=== PATIENT | male | born 1960 | race African-American/Black ===

== ENCOUNTER 2024-10-02 08:55 | Emergency (ER) | payer BC, SELFPAY ==
[2024-10-02] VITALS (8 sets, daily range): BP systolic 110–159; BP diastolic 80–99; PULSE 78–87; RESP 16–22; TEMP 36.4; O2SAT 97–98
--- NOTE | ~2024-10-02 | CT_ITS ---
EXAMINATION: CT brain wo con DATE: 10/02/2024 09:15 INDICATION: Stroke. TECHNIQUE: Computed tomography (CT) of the head was performed without intravenous contrast. The mA wa s adjusted according to patient size. Iterative reconstruction technique was employed. The dose-lengt h product was 681.00 mGy-cm. COMPARISON: None FINDINGS: There are scattered areas of low attenuation in the cerebral white matter, which is within normal limits for the patient's age. There is no intracranial hemorrhage, acute infarction, or abnorm al intracranial mass lesion. The ventricles are normal in size. There is mild mucosal thickening in t he paranasal sinuses. The orbits are normal. The mastoid air cells are normal. IMPRESSION: 1. Normal aging brain. Reviewed, dictated and finalized at location A. MOTIVE PRODUCT ENGINEER IMPRESSION: 1. Normal aging brain.
--- NOTE | ~2024-10-02 | CT_ITS ---
EXAMINATION: CTA brain carotid DATE: 10/02/2024 09:23 INDICATION: Stroke. TECHNIQUE: Computed tomographic angiography (CTA) of the head was performed with 100 mL Omnipaque-350 intravenous contrast. CTA of the neck was performed with intravenous contrast. Automated exposure co ntrol and iterative reconstruction technique were employed. The dose-length product was 1180.64 mGy-c m. Maximum intensity projection and volume rendered 3D-reconstructions were created by the technologi st on a separate workstation. COMPARISON: Head CT 10/02/2024 FINDINGS: HEAD CTA: There are scattered areas of low attenuation in the cerebral white matter, which is within normal limits for the patient's age. There is no intracranial hemorrhage, acute infarction, or abnorm al intracranial mass lesion. The ventricles are normal in size. The orbits are normal. There is mild mucosal thickening in the paranasal sinuses. The mastoid air cells are normal. Right vertebral artery is dominant. There is no significant stenosis of basilar artery or the posterior cerebral arteries. The posterior communicating arteries are normal. There is no significant stenosis of the intracranial internal carotid arteries or anterior or middle cerebral arteries. Anterior communicating artery is normal. There is no aneurysm. NECK CTA: There are no pathologically enlarged lymph nodes. There is no significant stenosis of the v ertebral arteries. There is plaque in the proximal internal carotid arteries. There is 0% stenosis of the proximal right internal carotid artery relative to normal distal artery lumen diameter (NASCET c riteria). There is 0% stenosis of the proximal left internal carotid artery relative to normal distal artery lumen diameter. There is mild cervical spondylosis. IMPRESSION: 1. Normal aging brain. 2. No aneurysm or significant intracranial arterial stenosis. 3. 0% stenosis of the proximal internal carotid arteries relative to normal distal artery lumen diame ters (NASCET criteria). Reviewed, dictated and finalized at location A. E LAMINATOR OPERATOR IMPRESSION: 1. Normal aging brain. 2. No aneurysm or significant intracranial arterial stenosis. 3. 0% stenosis of the proximal internal carotid arteries relative to normal dis abiodun artery lumen diameters (NASCET criteria).
--- NOTE | ~2024-10-02 | XR_ITS ---
Portable chest x-ray Comparison: 08/30/2022 Clinical History: Stroke symptoms Findings: Lungs are clear, without focal consolidation or pleural effusion. Cardiomediastinal silho uette is stable. Bones and soft tissues are unremarkable. Impression: Clear lungs. Reviewed, dictated and finalized at [facility]. TICKET CLERK Impression: Clear lungs.
--- NOTE | 2024-10-02 08:57 | ECG_ITS ---
Test Date: 2024-10-02 09:33:37 Measurements Intervals [place] Rate: 76 P: 36 TN: 170 QRS: -11 QRSD: 94 T: -2 QT: 351 QTc: 397 Interpretive Statements SINUS RHYTHM BORDERLINE R WAVE PROGRESSION, ANTERIOR LEADS ST-T WAVE ABNORMALITY IN INFERIOR LEADS- CONSIDER ISCHEMIA ABNORMAL ECG No previous ECG available for comparison Electronically Signed On 10-02-2024 11:04:17 CUSTOMER ACCOUNT TECHNICIAN by Yovany Barteltt D.O.
[2024-10-02 09:04] LABS: Glucose Point of Care 332 mg/dl (65-105)
--- NOTE | 2024-10-02 09:13 | ED_ITS ---
HPI - Neuro Symptoms/Deficit General Chief Complaint: Neuro Symptoms/Deficit <Kelsey Frank APRN - Last Filed: 10/02/24 09:18> Stated Complaint: R sided facial droop <Kelsey Frank APRN - Last Filed: 10/02/24 09:18> Time Seen by Provider: 10/02/24 09:10 <Kelsey Frank APRN - Last Filed: 10/02/24 09:18> Focused HPI: Pt is a 64-year-old male who presents to the ER with R sided weakness. He reports he went to bed around 2200 last night and woke up this morning with symptoms including a R sided facial droop, R-sided upper extremity and R lower extremity weakness. Pt reports he has never had a stroke before, but has a history of high blood pressure and diabetes. He reports he understands what others are saying to him, but is having trouble getting his words back out. Pt denies any chest pain, recent fevers, neck stiffness, or recent falls. GENERAL: Well-appearing, well-nourished, and in no acute distress. HEAD: Normocephalic, atraumatic. CHEST: Clear to auscultation. ?No respiratory distress. HEART: Regular rate and rhythm.? NEURO: ?Alert and oriented x3. 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 Patient screened in triage and initial orders placed.? ?Additional care and disposition to be based upon?diagnostic testing and treatment. <Kelsey Frank APRN - Last Filed: 10/02/24 09:18> History of Present Illness HPI Narrative: patient is a 64-year-old gentleman presents emergency department with chief complaint of right-sided weakness. The patient states that he woke up at 6:30 a.m. in the morning and at 7:00 a.m. when he went to the bathroom he developed symptoms. <Portillo Mccarthy MD - Last Filed: 10/02/24 10:59> Review of Systems 2 Review of Systems: A 10 system review of systems was completed on the patient and is negative except for what is stated in the HPI. Nursing and ancillary documentation was reviewed. <Portillo Mccarthy MD - Last Filed: 10/02/24 10:59> PMFSH Comments history of hypertension and diabetes <Portillo Mccarthy MD - Last Filed: 10/02/24 10:59> Exam 2 Narrative: GENERAL: Well-appearing, well-nourished, and in no acute distress. HEAD: Normocephalic, atraumatic. EYES: PERRLA and EOMI. ENT: Nares clear, no rhinorrhea or epistaxis. Mucous membranes moist. NECK: Supple. CHEST: Clear to auscultation. No respiratory distress. HEART: Regular rate and rhythm. No murmur heard. Normal peripheral pulses. ABDOMEN: Soft, nontender, nondistended, normal active bowel sounds. EXTREMITIES: Normal range of motion. No edema. SKIN: Warm, dry, no rash. NEURO: right-sided facial droop, slurred speech, right-sided drift and right upper extremity and right lower extremity ataxia present extremities NIH 6 Alert and oriented x3. PSYCH: Normal mood and affect. <Portillo Mccarthy MD - Last Filed: 10/02/24 10:59> Course Vital Signs Vital signs: Vital Signs Temperature 36.4 C 10/02/24 08:58 Pulse Rate 81 10/02/24 08:58 Respiratory Rate 16 10/02/24 08:58 Blood Pressure 140/89 10/02/24 08:58 Pulse Oximetry 97 10/02/24 08:58 Oxygen Delivery Room Air 10/02/24 08:58 Temperature 36.4 C 10/02/24 08:58 Pulse Rate 81 10/02/24 10:00 Respiratory Rate 16 10/02/24 10:00 Blood Pressure 159/86 H 10/02/24 10:00 Pulse Oximetry 97 10/02/24 10:00 Oxygen Delivery Room Air 10/02/24 08:58 <Kelsey Frank APRN - Last Filed: 10/02/24 09:18> Vital Signs Temperature 36.4 C 10/02/24 08:58 Pulse Rate 81 10/02/24 08:58 Respiratory Rate 16 10/02/24 08:58 Blood Pressure 140/89 10/02/24 08:58 Pulse Oximetry 97 10/02/24 08:58 Oxygen Delivery Room Air 10/02/24 08:58 Temperature 36.4 C 10/02/24 08:58 Pulse Rate 81 10/02/24 10:00 Respiratory Rate 16 10/02/24 10:00 Blood Pressure 159/86 H 10/02/24 10:00 Pulse Oximetry 97 10/02/24 10:00 Oxygen Delivery Room Air 10/02/24 08:58 <Portillo Mccarthy MD - Last Filed: 10/02/24 10:59> MDM - Neuro Symptoms/Deficit MDM Narrative Medical decision making narrative: differential diagnosis includes acute stroke, CT head and CT angiography head and neck showed no acute abnormality. Laboratory studies were obtained on the patient which showed a blood sugar of 332 CBC was within normal limits initially the patient had a question as to last known well and multiple repeated questioning of the patient patient has both confirmed with me and also the nurse that his last known well was right at 7:00 a.m. the patient reports that he woke up at 6:30 a.m. had no symptoms at the time of waking up in occurred after he went to the bathroom <Portillo Mccarthy MD - Last Filed: 10/02/24 10:59> Lab Data Result diagrams: 10/02/24 09:07 10/02/24 09:07 <Kelsey Frank APRN - Last Filed: 10/02/24 09:18> Labs: Lab Results 10/02/24 10/02/24 Range/Units 09:01 09:07 WBC 6.5 (4.5-10.0) K/mm3 RBC 5.95 (4.6-6.20) M/mm3 Hgb 16.1 (14.0-18.0) g/dL Hct 47.4 (42.0-52.0) % MCV 79.7 L (80-100) fl MCH 27.1 (26-34) pg MCHC 34.0 (32-36) g/dl RDW 13.3 (11.5-14.5) % Plt Count 251 (150-375) k/mm3 MPV 10.4 (7.4-10.4) fl Immature Gran % (Auto) 0.5 (0-0.5) % Neut % (Auto) 67.9 (45.5-73.1) % Lymph % (Auto) 19.4 (18.3-44.2) % Barren % (Auto) 9.4 H (2.6-8.5) % Eos % (Auto) 2.0 (0-4.4) % Baso % (Auto) 0.8 (0.2-1.2) % Lymph # (Auto) 1.26 (0.9-3.2) K/mm3 Barren # (Auto) 0.6 (0.1-0.6) K/mm3 Eos # (Auto) 0.1 (0-0.3) K/mm3 Baso # (Auto) 0.1 (0.0-0.1) K/mm3 Abs Immat Gran (auto) 0.03 (0.00-0.031) K/mm3 Absolute Neuts (auto) 4.4 (1.3-6.7) K/mm3 Absolute Nucleated RBC 0.000 (0.0-0.012) K/mm3 Nucleated RBC % 0.0 (0.0-0.2) % PT 12.9 (11.1-14.7) Seconds INR 0.9 APTT 23.4 (22.3-36.8) Seconds Sodium 136 L (137-145) mmol/L Potassium 4.1 (3.4-5.0) mmol/L Chloride 98 (98-107) mmol/L Carbon Dioxide 24 (22-30) mmol/L Anion Gap 14 H (4-12) mmol/L BUN 23 H (9-20) mg/dL Creatinine 1.02 (0.7-1.3) mg/dL Estim Creat Clear Calc 76 ml/min Estimated GFR > 60 (59 - ) Glucose 301 H (65-110) mg/dL POC Capillary Glucose 332 H (65-105) mg/dl Calcium 9.5 (8.4-10.2) mg/dL Total Bilirubin 1.1 (0.2-1.3) mg/dL AST 27 (17-59) U/L ALT 27 (6-50) U/L Alkaline Phosphatase 74 (38-126) U/L Troponin I < 0.012 (0.000-0.034) ng/mL Total Protein 7.0 (6.3-8.2) g/dL Albumin 4.3 (3.5-5.1) g/dL <Kelsey Frank, MANAGER MOTOR - Last Filed: 10/02/24 09:18> Lab Results 10/02/24 10/02/24 Range/Units 09:01 09:07 WBC 6.5 (4.5-10.0) K/mm3 RBC 5.95 (4.6-6.20) M/mm3 Hgb 16.1 (14.0-18.0) g/dL Hct 47.4 (42.0-52.0) % MCV 79.7 L (80-100) fl MCH 27.1 (26-34) pg MCHC 34.0 (32-36) g/dl RDW 13.3 (11.5-14.5) % Plt Count 251 (150-375) k/mm3 MPV 10.4 (7.4-10.4) fl Immature Gran % (Auto) 0.5 (0-0.5) % Neut % (Auto) 67.9 (45.5-73.1) % Lymph % (Auto) 19.4 (18.3-44.2) % Barren % (Auto) 9.4 H (2.6-8.5) % Eos % (Auto) 2.0 (0-4.4) % Baso % (Auto) 0.8 (0.2-1.2) % Lymph # (Auto) 1.26 (0.9-3.2) K/mm3 Barren # (Auto) 0.6 (0.1-0.6) K/mm3 Eos # (Auto) 0.1 (0-0.3) K/mm3 Baso # (Auto) 0.1 (0.0-0.1) K/mm3 Abs Immat Gran (auto) 0.03 (0.00-0.031) K/mm3 Absolute Neuts (auto) 4.4 (1.3-6.7) K/mm3 Absolute Nucleated RBC 0.000 (0.0-0.012) K/mm3 Nucleated RBC % 0.0 (0.0-0.2) % PT 12.9 (11.1-14.7) Seconds INR 0.9 APTT 23.4 (22.3-36.8) Seconds Sodium 136 L (137-145) mmol/L Potassium 4.1 (3.4-5.0) mmol/L Chloride 98 (98-107) mmol/L Carbon Dioxide 24 (22-30) mmol/L Anion Gap 14 H (4-12) mmol/L BUN 23 H (9-20) mg/dL Creatinine 1.02 (0.7-1.3) mg/dL Estim Creat Clear Calc 76 ml/min Estimated GFR > 60 (59 - ) Glucose 301 H (65-110) mg/dL POC Capillary Glucose 332 H (65-105) mg/dl Calcium 9.5 (8.4-10.2) mg/dL Total Bilirubin 1.1 (0.2-1.3) mg/dL AST 27 (17-59) U/L ALT 27 (6-50) U/L Alkaline Phosphatase 74 (38-126) U/L Troponin I < 0.012 (0.000-0.034) ng/mL Total Protein 7.0 (6.3-8.2) g/dL Albumin 4.3 (3.5-5.1) g/dL <Portillo Mccarthy MD - Last Filed: 10/02/24 10:59> Critical Care Time Critical Care Time Critical Care Time: Yes <Portillo Mccarthy MD - Last Filed: 10/02/24 10:59> Total Critical Care Time: 75 <Portillo Mccarthy MD - Last Filed: 10/02/24 10:59> Discharge Plan Discharge Clinical Impression: Cerebrovascular accident <Kelsey Frank APRN - Last Filed: 10/02/24 09:18> Patient Disposition: Acute Care Hospital <Kelsey Frank APRN - Last Filed: 10/02/24 09:18> Condition: Stable <Kelsey Frank APRN - Last Filed: 10/02/24 09:18> Patient Language: Setswana <Kelsey Frank APRN - Last Filed: 10/02/24 09:18> Follow-up/Referrals: PHYSICIAN,RECORDS MANAGEMENT COORDINATOR [Non-Staff] - <Kelsey Frank APRN - Last Filed: 10/02/24 09:18> Time of Disposition: 10:27 <Kelsey Abiodun Frakn APRN - Last Filed: 10/02/24 09:18> 10:27 <Portillo Mccarthy MD - Last Filed: 10/02/24 10:59> Quality Stroke Date of last known normal: 10/02/24 <Portillo Mccarthy MD - Last Filed: 10/02/24 10:59> Time of last known normal: 07:00 <Portillo Mccarthy MD - Last Filed: 10/02/24 10:59> Stroke Scale Stroke Scale 1: Stroke scale date:: 10/02/24 <Portillo Mccarthy MD - Last Filed: 10/02/24 10:59> Stroke scale time:: 10:25 <Portillo Mccarthy MD - Last Filed: 10/02/24 10:59> 1a Level of consciousness: alert-0 <Portillo Mccarthy MD - Last Filed: 10/02/24 10:59> 1b Level of consciousness questions: answers both correctly-0 <Portillo Mccarthy MD - Last Filed: 10/02/24 10:59> 1c Level of consciousness commands: obeys both correctly-0 <Portillo Mccarthy MD - Last Filed: 10/02/24 10:59> 2 Best gaze: normal-0 <Portillo Mccarthy MD - Last Filed: 10/02/24 10:59> 3 Visual: no visual loss-0 <Portillo Mccarthy MD - Last Filed: 10/02/24 10:59> 4 Facial palsy: partial paralysis-2 <Portillo Mccarthy MD - Last Filed: 10/02/24 10:59> 5a Motor: left arm: no drift-0 <Portillo Mccarthy MD - Last Filed: 10/02/24 10:59> 5b Motor: right arm: drift-1 <Portillo Mccarthy MD - Last Filed: 10/02/24 10:59> 6a Motor: left leg: no drift-0 <Portillo Mccarthy MD - Last Filed: 10/02/24 10:59> 6b Motor: right leg: drift-1 <Portillo Mccarthy MD - Last Filed: 10/02/24 10:59> 7 Limb ataxia: present in one limb-1 <Portillo Mccarthy MD - Last Filed: 10/02/24 10:59> 8 Sensory: normal-0 <Portillo Mccarthy MD - Last Filed: 10/02/24 10:59> 9 Best language: no aphasia-0 <Portillo Mccarthy MD - Last Filed: 10/02/24 10:59> 10 Dysarthria: slurs some words-1 <Portillo Mccarthy MD - Last Filed: 10/02/24 10:59> 11 Extinction and inattention: no abnormality-0 <Portillo Mccarthy MD - Last Filed: 10/02/24 10:59> Level:: 6 <Portillo Mccarthy MD - Last Filed: 10/02/24 10:59>
[2024-10-02 09:14] LABS: Basophils Absolute Auto 0.1 K/mm3 (0.0-0.1); Basophils Percent Auto 0.8 % (0.2-1.2); Eosinophils Absolute Auto 0.1 K/mm3 (0-0.3); Hematocrit 47.4 % (42.0-52.0); Hemoglobin 16.1 g/dL (14.0-18.0); Immature Granulocyte Absolute 0.03 K/mm3 (0.00-0.031); Immature Granulocyte Percent A 0.5 % (0-0.5); Lymphocytes Absolute Auto 1.26 K/mm3 (0.9-3.2); Lymphocytes Percent Auto 19.4 % (18.3-44.2); Mean Corpuscular Hemoglobin 27.1 pg (26-34); Mean Corpuscular Volume 79.7 fl (80-100); Mean Platelet Volume 10.4 fl (7.4-10.4); Monocytes Absolute Auto 0.6 K/mm3 (0.1-0.6); Monocytes Percent Auto 9.4 % (2.6-8.5); Neutrophils Absolute Auto 4.4 K/mm3 (1.3-6.7); Neutrophils Percent Auto 67.9 % (45.5-73.1); Platelet Count Result 251 k/mm3 (150-375); Red Blood Count 5.95 M/mm3 (4.6-6.20); Red Cell Distribution Width 13.3 % (11.5-14.5); White Blood Count 6.5 K/mm3 (4.5-10.0)
[2024-10-02 09:25] LABS: Alanine Aminotransferase 27 U/L (6-50); Albumin Level 4.3 g/dL (3.5-5.1); Alkaline Phosphatase 74 U/L (38-126); Anion Gap 14 mmol/L (4-12); Aspartate Amino Transferase 27 U/L (17-59); Bilirubin,Total 1.1 mg/dL (0.2-1.3); Blood Urea Nitrogen 23 mg/dL (9-20); Calcium 9.5 mg/dL (8.4-10.2); Carbon Dioxide 24 mmol/L (22-30); Chloride 98 mmol/L (98-107); Estimated CRCL calculation 76 ml/min; Estimated Glomerular Filt Rate > 60; Glucose 301 mg/dL (65-110); Potassium 4.1 mmol/L (3.4-5.0); Sodium 136 mmol/L (137-145)
[2024-10-02 09:30] LABS: INR 0.9; Prothrombin Time 12.9 Seconds (11.1-14.7)
[2024-10-02 09:32] LABS: Partial Thromboplastin Time 23.4 Seconds (22.3-36.8)
[2024-10-02 09:37] LABS: Troponin I < 0.012 ng/mL (0.000-0.034)
[2024-10-02] MEDS: TENECTEPLASE 50 MG/10 ML VIAL 23.8 MG IV PUSH (10:48)
[2024-10-02 11:20] LABS: Amphetamine Screen Urine Negative (Negative); Barbiturate Screen Urine Negative (Negative); Benzodiazepines Screen Urine Negative (Negative); Cannabinoid Screen Urine Negative (Negative); Cocaine Screen Urine Negative (Negative); Methadone Screen Urine Negative (Negative); Opiate Screen Urine Negative (Negative); Phencyclidine Screen Urine Negative (Negative)
--- OUTSIDE RECORDS SUMMARY | 2024-10-02 11:25 | XMS_ITS | Encounter Summary ---
Author Organization [facility] Address Formerly [facility], later [facility] [place] [address] Care Team Providers Care Cruise Coordinator Name Role Phone Ba Gustafson MD Primary Care Provider [phone] Leticia Tompkins MD Unavailable [phone] Non-Staff, Provider Primary Care Provider Vicki spann Encounter Details Date Type Department Care Team (Late st Contact Info) Description 04/12/2021 Prep for Procedure [facility] [place] [address] Everette Jaramillo, DO #3 [facility] [address] [place] [id number] Social History Tobacco Use Types Packs/Day Years Used Date Smoking Tobacco: Former Cigarettes Smokeless Tobacco: Never Alcohol Use Standard Drinks/Week Comments No 0 (1 standard drink = 0.6 oz pur e alcohol) AUDIT-C Answer Date Recorded Frequency of Alcohol Consumption Never 03/12/2019 Average Number of Drinks Not on file 019 Frequency of Binge Drinking Not on file 02/25 Sex and Gender Information Value Date Recorded Sex Assigned at Not on file Legal Sex Male 1:57 PM CDT Gender Identity Not on file Sexual Orientation Not on file Occupation Industry Job Start Date Job End Date Student Not on file Not on file Not on file documented as of this encounter Plan of Treatment Not on file documented as of this encounter Visit Diagnoses Diagnosis Screening for colon cancer- Primary Special screening for malignant neoplasms, colon documented in this encounter Additional Health Concerns Infection Onset Date Last Indicated Resolved Time COVID-19 Rule Out 03/29/2022 03/29/2022 03/30/2022 7:47 AM CDT documented as of this encounter Care Teams Cruise Coordinator Relationship Specialty Start Date End Date Ba Gustafson MD [address] [place] [id number] PCP - General FAMILY PRACTICE 03/22/18 05/16/21 Non-Staff, Provider PCP - General 05/17/21 Leticia Tompkins MD [address] [place] [id number] [place] [facility] Specialist CARDIOVASCULAR DISEASE 03/22/18 documented as of this encounter
--- OUTSIDE RECORDS SUMMARY | 2024-10-02 11:25 | XMS_ITS | Clinical Summary ---
Author Organization [facility] Address [facility] [place] [address] Care Team Providers Care Manager Quantitative Name Role Phone Leticia Tompkins MD Unavailable [phone] Non-Staff, Provider Primary Care Provider Vicki spann Allergies Active Allergy Reactions Criticality Noted Date Comments Aspirin Dizziness 04/02/2018 Latex Unknown 04/02/2018 Medications metFORMIN 1000 MG tablet Take 1,000 mg by mouth 2 (two) times daily with meals. Active hydrochlorothiaz cody 25 MG tablet Take 1 tablet (25 mg total) by mouth every morning. 30 tablet 11 03/12/2019 Active lisinopril 40 MG tablet Take 1 tablet (40 mg total) by mouth daily. 30 tablet 11 06/07/2019 Active carvedilol 12.5 MG tablet Take 1 tablet (12.5 mg total) by mouth 2 (two) times daily. 60 tablet 11 06/07/2019 Active Active Problems Problem Noted Date Diagnosed Date Type 2 diabetes mellitus wit h complication, without long-term current use of insulin ([facility]) 03/12/2019 HTN (hypertension) Immunizations Name Administration Dates Next Due PFIZER COVID-19 (ORIGINAL FO RMULATION, PURPLE CAP) mRNA, LNP-S, PF, 30 MCG/0.3 ML DOSE 04/05/2021,01/27/2021 Family History Medical History Relation Comments Diabetes Father Heart Disease Father Relation Status Comments Father Social History Tobacco Use Types Packs/Day Years [...] file Not on file Not on file Last Filed Vital Signs Vital Sign Reading Time Taken Comments Blood Pressure 176/96 05/17/2021 1:45 PM CDT Pulse 64 05/17/2021 1:50 PM CDT Temperature 37.3 ??C (99.1 ??F) 05/17/2021 1:25 PM CD T Respiratory Rate 15 05/17/2021 1:50 PM CDT Oxygen Saturation 98% 05/17/2021 1:50 PM CDT Inhaled Oxygen Concentration - - Weight 88.9 kg (196 lb) 05/17/2021 11:15 AM CDT Height 177.8 cm (5' 10 ) 05/17/2021 11:15 AM CDT Body Mass Index 28.12 05/17/2021 11:15 AM CDT Plan of Treatment Health Maintenance Due Date Last Done Comments Kidney Health Evaluation 1962 Lipid Panel 1960 Annual Physical 1965 Pneumococcal Vaccine: Pediatrics (0 to 5 Years) and At-Risk Patients (6 to 64 Years) (1 of 2 - PCV) 01/11/1968 Diabetes: Retinopathy Eye Exam 01/11/1980 Hepatitis C 01/11/1980 DTaP, Tdap and Td Vaccines ( 1 - Tdap) 1981 Zoster Vaccines (1 of 2) 01/11/2012 Hemoglobin A1C 07/07/2018 01/04/2018, 09/22/2017 COVID-19 Vaccine (3 - 2023-2 5 season) 2024 04/05/2021, 01/27/2021 Influenza Adult (#1) 2024 Colorectal Cancer Screening Colonoscopy (10 Years) 05/17/2031 05/17/2021 RSV Immunization or 60+ Years (1 - 1-dose 75+ series) 2037 Meningococcal B Vaccine Aged Out No l onger eligible based on patient's age to complete this topic Meningococcal Vaccine Aged Out No agustin sandra eligible based on patient's age to complete this topic RSV Immunizations Under 20 Months Aged Out No longer eligible b ased on patient's age to complete this topic Medical Devices Implanted Type Area Civil Technician Device Identifier Shelf Expiration Date Model / Serial / Lot Clip Resolution 2.8mm Braid Catheter Rotation Control Knob No Sheath Resolution 360 235cm 11mm Open - [id number] Implanted:Qty : 1 on 05/17/2021 by Everette Jaramillo DO at [facility] Clip Implant N/A: Abdomen CORD:USE Cord Blood Bank [id number] 03/14/2024 [id number] / / [id number] Description:Ascending colon Procedures Procedure Name Priority Date/Time Associated Diagnosis Comments HEMOGLOBIN, GLYCOSYLATED Routine 01/04/2018 from Last 3 Months or Most Recently Relevant to Health Maintenance Results * HEMOGLOBIN, GLYCOSYLATED (01/04/2018) HGB A1C 8.8 01/04/2018 us [facility] Final Result from Last 3 Months or Most Recently Relevant to Health Maintenance Insurance [facility] Care Teams Manager Quantitative Relationship Specialty Start Date End Date Non-Staff, Provider PCP - General 05/17/21 Leticia Tompkins MD [address] [place] [id number] [place] Change Management Coordinator CARDIOVASCULAR DISEASE 03/22/18
--- OUTSIDE RECORDS SUMMARY | 2024-10-02 11:25 | XMS_ITS | Referral Summary ---
Author Organization [facility] [id number] Address [address] [place] [address] Care Team Providers Care Jelly Maker Name Role Phone Kaur Earl NP Primary Care Provider [phone] Allergies Active Allergy Reactions Criticality Noted Date Comments Aspirin Dizziness Low 04/02/2018 Other reaction(s): Dizziness Latex Unknown 04/02/2018 Medications blood-glucose meter kitIndications:Type 2 diabetes mellitus without complication, without long-term current use of insulin ([facility]/HCC) (HCC) 1 each daily DX: e11.9 1 each 3 1 Active lancets misc Check sugar once daily 100 each 1 1 Active ibuprofen (ADVIL,MOTRIN) 800 mg tabletIndications:A nti-inflammatory,Pa in Take 1 tablet (800 mg total) by mouth 3 (three) times a day 90 tablet 3 Active rosuvastatin (CRESTOR) 10 mg tabletIndications:M ixed hyperlipidemia Take 1 tablet (10 mg total) by mouth daily 90 tablet 1 3 Active empagliflozin (Jardiance) 25 mg tabletIndications:H ypertension associated with diabetes (HCC) Take 1 tablet (25 mg total) by mouth daily 90 tablet 1 4 Active hydrALAZINE (APRESOLINE) 50 mg tabletIndications:h ypertension Take 1 tablet (50 mg total) by mouth 2 (two) times a day 60 tablet 1 4 Active lisinopriL (PRINIVIL,ZESTRIL) 40 mg tabletIndications:H ypertension associated with diabetes (HCC) Take 1 tablet (40 mg total) by mouth daily 90 tablet 1 4 Active metFORMIN (GLUCOPHAGE) 1,000 mg tabletIndications:H ypertension associated with diabetes (HCC) TAKE 1 TABLET(1000 MG) BY MOUTH TWICE DAILY WITH MEALS 60 tablet 4 Active carvediloL (COREG) 12.5 mg tabletIndications:H ypertension associated with diabetes (HCC) TAKE 1 TABLET(12.5 MG) BY MOUTH TWICE DAILY WITH MEALS 60 tablet 4 Active hydroCHLOROthiazide (HYDRODIURIL) 25 mg tabletIndications:H ypertension associated with diabetes (HCC) TAKE 1 TABLET(25 MG) BY MOUTH DAILY 30 tablet 4 Active Active Problems Problem Noted Date Diagnosed Date Chronic midline low back pain without sciatica 0 02/10/2023 Assessment & Plan (02/10/2023 2:11 PM CDT): This is a significant, separately identifiable problem that was evaluated and managed on the same day as the wellness exam Subacute cough 08/30/2022 Fever 08/30/2022 Erectile dysfunction 06/27/2022 BMI 27.0-27.9,adult 06/13/2022 Assessment & Plan (06/13/2022 10:29 AM CDT): Weight/BMI is in healthy range. Continue healthy lifestyle to maintain. Mixed hyperlipidemia 06/13/2022 Hypertension associated with diabetes 10/06/2020 Assessment & Plan (02/10/2023 2:11 PM CDT): This is a significant, separately identifiable problem that was evaluated and managed on the same day as the wellness exam Assessment & Plan (11/24/2020 9:34 AM CDT): Restart lisinopril daily. Advised goal 120-130/80. Assessment & Plan (10/06/2020 9:46 AM [employer]PRES[employer]ATIVE [employer]): Restart medications. Advised goal 120/80 Encounter to establish care 10/06/2020 Assessment & Plan (10/06/2020 9:46 AM SALES [employer]PRESENTATIVE [employer]ILITY [employer]): He declines vaccines at this time. Retrieve records from previous pcp. Prostate cancer screening 10/06/2020 Assessment & Plan (10/06/2020 9:45 AM SALES [employer]PRESENTATIVE [employer]ILITY [employer]): Will evaluate psa, will notify of results as available Physical exam, annual 10/06/2020 Assessment & Plan (10/06/2020 9:46 AM SALES REPRESENTATIVE [employer]ILITY [employer]): Will refer to GI for cscope Primary osteoarthritis of right knee 10/06/2020 Assessment & Plan (10/06/2020 9:45 AM SALES [employer]PRESENT[employer]IVE [employer]ILITY [employer]): Advised RICE therapy, tylenol prn Offered referral to PT and ortho - he declines at this time Type 2 diabetes mellitus wit hout complication, without long-term current use of insulin ([facility]) 03/12/2019 Overview (06/12/2023): Start Farxiga 10 mg daily as directed. Continue metformin 1000 mg twice daily. Have lab work completed prior to next visit Assessment & Plan (11/24/2020 9:34 AM CDT): Advised him to complete labs as ordered at previous visit. Advised him to schedule dilated eye exam. Advised monitoring sugar with goal 80-120 fasting. He will call office over coming week with glucose log as we may need to adjust medication. Assessment & Plan (10/06/2020 9:45 AM SALES REPRESENTATIVE [employer]ILITY [employer]): Restart medications Fasting labs entered, will notify patient of results as available Advised goal fasting sugar 80-120 Resolved Problems Problem Noted Date Diagnosed Date Resolved Date BMI 28.0-28.9,adult 11/24/2020 06/13/20 Assessment & Plan (11/24/2020 8:10 AM CDT): Weight/BMI is in healthy range. Continue healthy lifestyle to maintain. BMI 29.0-29.9,adult 10/06/2020 11/25/19 Assessment & Plan (10/06/2020 8:43 AM SALES REPRESENTATIVE [employer]ILITY [employer]): Obesity is unchanged. Discussed the patient's BMI. The BMI is above average. BMI management plan is completed. BMI Follow-up includes: nutrition counseling, exercise counseling and education provided. Immunizations Name Administration Dates Next Due Influenza, Unspecified 11/14/2023(Deferr ed: Patient Refused),08/28/2023(Deferred: Patient Refused),06/12/2023(Deferred: Patient Refused),08/29/2022(Deferred: Patient Refused),08/28/2022(Deferred: Patient Refused),06/28/2022,08/30/2021(Deferred: Patient Refused),06/05/2020(Deferred: Patient Refused) Social History Tobacco Use Types Packs/Day Years Used Date Smoking Tobacco: Never Smokeless Tobacco: Never Tobacco Cessation:Counseling Given: Not Answered Alcohol Use Standard Drinks/Week Comments Never 0 (1 standard drink = 0.6 oz pur e alcohol) AUDIT-C Answer Date Recorded Q1: How often do you have a drink containing alc ohol? Never 06/13/2022 Average Number of Drinks Not on file 022 Q3: How often do you have si x or more drinks on one occasion? Never 06/13/2022 PHQ-2 Answer Date Recorded PHQ-2 Total Score (If total score is 3 or more points, staff should administer the PHQ-9) 0 11/14/2023 Personal Safety Answer Date Recorded Getting School Help Needed Not on file 09/17 Sex and Gender Information Value Date Recorded Sex Assigned at Not on file Legal Sex Male 12:16 PM [employer] Gender Identity Not on file Sexual Orientation Not on file Last Filed Vital Signs Vital Sign Reading Time Taken Comments Blood Pressure 162/98 06/12/2023 9:50 AM CDT Pulse 82 11/14/2023 2:36 PM CDT Temperature 37.1 ??C (98.7 ??F) 06/12/2023 9:50 AM CD T Respiratory Rate 16 06/27/2022 10:44 AM CDT Oxygen Saturation 96% 11/14/2023 2:36 PM CDT Inhaled Oxygen Concentration - - Weight 88.5 kg (195 lb) 11/14/2023 2:36 PM CDT Height 177.8 cm (5' 10 ) 11/14/2023 2:36 PM CDT Body Mass Index 27.98 11/14/2023 2:36 PM CDT Plan of Treatment Not on file Procedures Procedure Name Priority Date/Time Associated Diagnosis Comments POCT HEMOGLOBIN A1C Routine 11/14/2023 2 :58 PM CDT Hypertension associated with diabetes (HCC) COMPREHENSIVE METABOLIC PANEL Routine 02/24/2023 1:50 PM CDT Essential hypertension LIPID PANEL Routine 02/24/2023 1:50 PM CDT Mixed hyperlipidemia HEPATITIS C ANTIBODY Routine 06/14/2022 9:42 AM CDT Encounter for hepatitis C screening test for low risk patient ALBUMIN CREATININE RATIO, URINE Routine 06/14/2022 9:42 AM CDT Type 2 diabetes mellitus without complication, without long-term current use of insulin (CMS/HCC) (HCC) PSA SCREEN Routine 06/14/2022 9:42 AM CDT Screening for prostate cancer DIABETIC FOOT EXAM Routine 06/13/2022 10 :38 AM CDT HM COLONOSCOPY Routine 05/17/2021 from Last 3 Months or Most Recently Relevant to Health Maintenance Results * (ABNORMAL) POCT hemoglobin A1c (11/14/2023 2:58 PM CDT) Hemoglobin A1C, POC 9.3 % BLD 11/14/2023 2:58 PM CDT Kaur Earl NP POINT OF CARE TEST ORDERABLES Final Result * (ABNORMAL) Lipid panel (02/24/2023 1:50 PM CDT) Cholesterol 246(H) <200 mg/dL [facility] HDL 50 > OR = 40 mg/dL [facility] Triglycerides 104 <150 mg/dL [facility] LDL 173(H) mg/dL (calc) [facility] Comment: Reference range: <100 Desirable range <100 mg/dL for primary prevention; ?? <70 mg/dL for patients with CHD or diabetic patients with > or = 2 CHD risk factors. LDL-C is now calculated using the Eliza calculation, which is a validated novel method providing better accuracy than the Friedewald equation in the estimation of LDL-C. Stevie SS et al. ISAIAH. 2013;310(19): 2442-9064 (http://education.Luxoft/faq/DHZ334) Chol/HDL ratio 4.9 <5.0 (calc) [facility] Non-HDL, (LDL+VLDL) 196(H) <130 mg/dL (calc) [facility] Comment: For patients with diabetes plus 1 major ASCVD risk factor, treating to a non-HDL-C goal of <100 mg/dL (LDL-C of <70 mg/dL) is considered a therapeutic option. Blood 02/24/2023 1:50 PM CDT 02/24/2023 1:51 PM CDT Narrative [facility] - 02/25/2023 1:23 AM CDT FASTING:NO FASTING: NO Kaur Earl LANDCARE OFFICER LAB BLOOD ORDERABLES Final Re sult [facility] [id number] [place] [address] * (ABNORMAL) Comprehensive metabolic panel (02/24/2023 1:50 PM CDT) Pathologist [facility] Glucose 173(H) 65 - 139 mg/dL [facility] Comment: ? Non-fasting reference interval BUN 18 7 - 25 mg/dL [facility] Creatinine 1.17 0.70 - 1.35 mg/dL [facility] eGFR 71 > OR = 60 mL/min/1. 73m2 [facility] Comment: The eGFR is based on the CKD-EPI 2020 equation. To calculate the new eGFR from a previous Creatinine or Cystatin C result, go to https://www.kidney.org/professionals/ kdoqi/gfr%5Fcalculator BUN/creat ratio NOT APPLICABLE 6 - 22 (calc) [facility] Sodium 138 135 - 146 mmol/L [facility] Potassium, pl 4.3 3.5 - 5.3 mmol/L [facility] Chloride 101 98 - 110 mmol/L [facility] CO2 32 20 - 32 mmol/L [facility] Calcium 10.1 8.6 - 10.3 mg/dL [facility] Protein, sr 7.4 6.1 - 8.1 g/dL [facility] Albumin 4.6 3.6 - 5.1 g/dL [facility] GLOBULIN 2.8 1.9 - 3.7 g/dL (calc) [facility] Alb/glob ratio 1.6 1.0 - 2.5 (calc) [facility] Bilirubin, total 1.2 0.2 - 1.2 mg/dL [facility] Alk phos 65 35 - 144 U/L [facility] AST 21 10 - 35 U/L [facility] ALT (SGPT) 17 9 - 46 U/L [facility] Blood 02/24/2023 1:50 PM CDT 02/24/2023 1:51 PM CDT Narrative [facility] - 02/25/2023 1:23 AM CDT FASTING:NO FASTING: NO Kaur Earl LANDCARE OFFICER LAB BLOOD ORDERABLES Final Re sult [facility] [address] [place] [address] * PSA screen (06/14/2022 9:42 AM CDT) PSA 1.11 < OR = 4.00 ng/mL [facility] Comment: The total PSA value from this assay system is standardized against the WHO standard. The test result will be approximately 20% lower when compared to the equimolar-standardized total PSA (Meghan Teresa). Comparison of serial PSA results should be interpreted with this fact in mind. This test was performed using the Siemens chemiluminescent method. Values obtained from different assay methods cannot be used interchangeably. PSA levels, regardless of value, should not be interpreted as absolute evidence of the presence or absence of disease. Blood 06/14/2022 9:42 AM CDT 06/14/2022 9:44 AM CDT Kaur Earl LANDCARE OFFICER LAB BLOOD ORDERABLES Final Re sult Performing Organization Address [facility] de Phone Number [facility] [address] [place] [address] * Hepatitis C antibody (06/14/2022 9:42 AM CDT) Hep C Ab NON-REACTI VE NON-REACT DORCAS [facility] SIGNAL TO CUT-OFF 0.02 <1.00 [facility] Comment: HCV antibody was non-reactive. There is no laboratory evidence of HCV infection. In most cases, no further action is required. However, if recent HCV exposure is suspected, a test for HCV RNA (test code 16076) is suggested. For additional information please refer to http://education.Axigen Messaging/faq/EJB01o6 (This link is being provided for informational/ educational purposes only.) Blood 06/14/2022 9:42 AM CDT 06/14/2022 9:44 AM CDT Kaur Earl LANDCARE OFFICER LAB MICROBIOLOGY - GENERAL OR DERABLES Final Result Performing Organization Address [facility] de Phone Number [facility] [address] [place] [address] * Albumin Creatinine Ratio, Urine (06/14/2022 9:42 AM CDT) Creatinine, ur 178 20 - 320 mg/dL [facility] Microalbumin, ur 1.1 See Note: mg/dL [facility] Comment: Reference Range: Reference Range Not established Microalbumin/creat ratio 6 <30 mcg/mg creat [facility] Comment: The ADA defines abnormalities in albumin excretion as follows: Albuminuria Category ?Result (mcg/mg creatinine) Normal to Mildly increased ?? <30 Moderately increased ? 30-299 Severely increased ? > OR = 300 The ADA recommends that at least two of three specimens collected within a 3-6 month period be abnormal before considering a patient to be within a diagnostic category. Urine 06/14/2022 9:42 AM CDT 06/14/2022 9:44 AM CDT Kaur Earl LANDCARE OFFICER LAB URINE ORDERABLES Final Re sult [facility] [address] [place] [address] * Diabetic Foot Exam (06/13/2022 10:38 AM CDT) Historical Provider HEALTH MAINTENANCE Final Result * (ABNORMAL) COLONOSCOPY (05/17/2021) Historical Provider HEALTH MAINTENANCE Edited Result - Final from Last 3 Months or Most Recently Relevant to Health Maintenance Insurance codebender OOS codebender OOS Care Teams Jelly Maker Relationship Specialty Start Date End Date Kaur Earl NP PCP - General Internal Medicine 06/13/22
--- OUTSIDE RECORDS SUMMARY | 2024-10-02 11:25 | XMS_ITS | Clinical Summary ---
Author Organization [facility] [address] Address [address] [place] [address] Care Team Providers Care Solar Electric/Photovoltaic Installer Name Role Phone Kaur Earl NP Primary Care Provider [phone] Allergies Active Allergy Reactions Criticality Noted Date Comments Aspirin Dizziness Low 04/02/2018 Other reaction(s): Dizziness Latex Unknown 04/02/2018 Medications blood-glucose meter kitIndications:Type 2 diabetes mellitus without complication, without long-term current use of insulin ([facility]/HCC) (HCC) 1 each daily DX: e11.9 [...] 120-130/80. Assessment & Plan (10/06/2020 9:46 AM CERTIFICATION ENGINEER): Restart medications. Advised goal 120/80 Encounter to establish care 10/06/2020 Assessment & Plan (10/06/2020 9:46 AM CERTIFICATION ENGINEER): He declines vaccines at this time. Retrieve records from previous pcp. Prostate cancer screening 10/06/2020 Assessment & Plan (10/06/2020 9:45 AM CERTIFICATION ENGINEER): Will evaluate psa, will notify of results as available Physical exam, annual 10/06/2020 Assessment & Plan (10/06/2020 9:46 AM CERTIFICATION ENGINEER): Will refer to GI for cscope Primary osteoarthritis of right knee 10/06/2020 Assessment & Plan (10/06/2020 9:45 AM CERTIFICATION ENGINEER): Advised RICE therapy, tylenol prn Offered referral to PT and ortho - he declines at this time Type 2 diabetes mellitus wit hout complication, without long-term current use of insulin ([facility]) 03/12/2019 Overview (06/12/2023): Start Farxiga 10 mg [...] medication. Assessment & Plan (10/06/2020 9:45 AM CERTIFICATION ENGINEER): Restart medications Fasting labs entered, will notify patient of results as available Advised goal fasting sugar 80-120 Resolved Problems Problem Noted Date Diagnosed Date Resolved Date BMI 28.0-28.9,adult 11/24/2020 06/13/20 Assessment & Plan (11/24/2020 8:10 AM CDT): Weight/BMI is in healthy range. Continue healthy lifestyle to maintain. BMI 29.0-29.9,adult 10/06/2020 11/25/19 21 Assessment & Plan (10/06/2020 8:43 AM CERTIFICATION ENGINEER): Obesity is unchanged. Discussed the patient's BMI. The BMI is above average. BMI management plan is completed. BMI Follow-up includes: nutrition counseling, exercise counseling and education provided. Immunizations Name Administration Dates Next Due Influenza, Unspecified 11/14/2023(Deferr ed: Patient Refused),08/28/2023(Deferred: Patient Refused),06/12/2023(Deferred: Patient Refused),08/29/2022(Deferred: Patient Refused),08/28/2022(Deferred: Patient Refused),06/28/2022,08/30/2021(Deferred: Patient Refused),06/05/2020(Deferred: Patient Refused) Medical History Medical History Date Comments Back pain Hypertension Family History Medical History Relation Name Comments No Known Problems Father No Known Problems Mother Relation Name Status Comments Father Mother Social History Tobacco Use Types Packs/Day Years [...] on file Legal Sex Male 12:16 PM CERTIFICATION ENGINEER Gender Identity Not on file Sexual Orientation Not on file Obstetrics History Last Filed Vital Signs Vital Sign Reading [...] 11/14/2023 2:36 PM CDT Plan of Treatment Health Maintenance Due Date Last Done Comments Dilated Eye Exam 1962 Pneumococcal vaccine <65 (1 of 2 - PCV) 01/11/1968 DTaP/Tdap/Td Vaccine (1 - Tdap) 1973 Hepatitis B Screening 01/11/1980 Zoster Vaccine (1 of 2) 01/11/2012 Foot Exam 06/13/2023 06/13/2022, 11/24/2020 Albumin Creatinine Ratio, Urine 06/14/2023 Regular Well Visit/Exam 18-64 02/11/2024 02/10/2023 Lipid Panel 02/25/2024 02/24/2023, 06/14/2022 eGFR 02/25/2024 02/24/2023, 06/14/2022 Covid-19 Vaccine (3 - 2023-2 5 season) 2024 04/05/2021, 01/27/2021 Influenza Vaccine (#1) 2024 06/28/2022 Hemoglobin A1C 05/16/2024 11/14/2023, 05/28, 02/24/2023, Additional history exists Prostate Cancer Screening-PSA 06/14/2024 06/14/2022 Depression Screening 11/13/2024 11/14/2023, 06/12/2023, 02/27/2023, Additional history exists Colon Cancer Screening-Colonoscopy 05/17/20312020 Hepatitis C Screening Completed 06/14/2022 Procedures Procedure Name Priority Date/Time Associated Diagnosis [...] 1:50 PM CDT) Cholesterol 246(H) <200 mg/dL [facility] HDL 50 > OR = 40 mg/dL [facility] Triglycerides 104 <150 mg/dL [facility] LDL 173(H) mg/dL (calc) [facility] Comment: Reference range: <100 Desirable range <100 mg/dL for primary prevention; ?? <70 mg/dL for patients with CHD or diabetic patients with > or = 2 CHD risk factors. LDL-C is now calculated using the Eliza calculation, which is a validated novel method providing better accuracy than the Friedewald equation in the estimation of LDL-C. Stevie JO et al. ISAIAH. 2013;310(19): 5907-7644 (http://education.NxThera.LifeS[employer]/faq/CZW290) Chol/HDL ratio 4.9 <5.0 (calc) [facility] Non-HDL, (LDL+VLDL) 196(H) <130 mg/dL (calc) [facility] Comment: For patients with diabetes plus 1 major ASCVD risk factor, treating to a non-HDL-C goal of <100 mg/dL (LDL-C of <70 mg/dL) is considered a therapeutic option. Blood 02/24/2023 1:50 PM CDT 02/24/2023 1:51 PM CDT Narrative [facility] - 02/25/2023 1:23 AM CDT FASTING:NO FASTING: NO Kaur Earl NP LAB BLOOD ORDERABLES Final Re sult [facility] [address] [place] [address] * (ABNORMAL) Comprehensive metabolic panel (02/24/2023 1:50 PM CDT) Glucose 173(H) 65 - 139 mg/dL [facility] Comment: ? Non-fasting reference interval BUN 18 7 - 25 mg/dL [facility] Creatinine 1.17 0.70 - 1.35 mg/dL [facility] eGFR 71 > OR = 60 mL/min/1. 73m2 [facility] Comment: The eGFR is based on the CKD-EPI 2020 equation. To calculate the new eGFR from a previous Creatinine or Cystatin C result, go to https://www.kidney.org/professionals/ kdoqi/gfr%5Fcalculator BUN/creat ratio NOT APPLICABLE 6 - 22 (calc) [facility] Sodium 138 135 - 146 mmol/L [facility] Potassium, pl 4.3 3.5 - 5.3 mmol/L [facility] Chloride 101 98 - 110 mmol/L [facility] CO2 32 20 - 32 mmol/L [facility] Calcium 10.1 8.6 - 10.3 mg/dL [facility] Protein, sr 7.4 6.1 - 8.1 g/dL [facility] Albumin 4.6 3.6 - 5.1 g/dL [facility] GLOBULIN 2.8 1.9 - 3.7 g/dL (calc) [facility] Alb/glob ratio 1.6 1.0 - 2.5 (calc) [facility] Bilirubin, total 1.2 0.2 - 1.2 mg/dL [facility] Alk phos 65 35 - 144 U/L [facility] AST 21 10 - 35 U/L [facility] ALT (SGPT) 17 9 - 46 U/L [facility] Blood 02/24/2023 1:50 PM CDT 02/24/2023 1:51 PM CDT Narrative [facility] - 02/25/2023 1:23 AM CDT FASTING:NO FASTING: NO Kaur Earl [employer] LAB BLOOD ORDERABLES Final Re sult Performing Organization Address [facility] Co de Phone Number [facility] [address] [place] [address] * PSA screen (06/14/2022 9:42 AM CDT) PSA 1.11 < OR = 4.00 ng/mL [facility] Comment: The total PSA value from this assay system is standardized against the WHO standard. The test result will be approximately 20% lower when compared to the equimolar-standardized total PSA ([facility]). Comparison of serial PSA results should be interpreted with this fact in mind. This test was performed using the Siemens chemiluminescent method. Values obtained from different assay methods cannot be used interchangeably. PSA levels, regardless of value, should not be interpreted as absolute evidence of the presence or absence of disease. Blood 06/14/2022 9:42 AM CDT 06/14/2022 9:44 AM CDT Kaur Earl [employer] LAB BLOOD ORDERABLES Final Re sult Performing Organization Address City/[facility]/ZIP Co de Phone Number [facility] [address] [phone] * Hepatitis C antibody (06/14/2022 9:42 AM CDT) Hep C Ab NON-REACTI VE NON-REACT DORCAS [facility] SIGNAL TO CUT-OFF 0.02 <1.00 [facility] Comment: HCV antibody was non-reactive. There is no laboratory evidence of HCV infection. In most cases, no further action is required. However, if recent HCV exposure is suspected, a test for HCV RNA (test code 11851) is suggested. For additional information please refer to http://education.ChipVision Design/faq/WXJ50j0 (This link is being provided for informational/ educational purposes only.) Blood 06/14/2022 9:42 AM CDT 06/14/2022 9:44 AM CDT Kaur Earl NP LAB MICROBIOLOGY - GENERAL OR DERABLES Final Result Performing Organization Address City/State/[facility] Co de Phone Number [facility] [address] [place] [address] * Albumin Creatinine Ratio, Urine (06/14/2022 9:42 [...] 9:42 AM CDT 06/14/2022 9:44 AM CDT us Kaur [employer] [employer] LAB URINE ORDERABLES Final Re sult [facility] [address] [phone] * Diabetic Foot Exam (06/13/2022 10:38 AM CDT) us Historical Provider HEALTH MAINTENANCE Final Result * (ABNORMAL) HM COLONOSCOPY (05/17/2021) us Historical Provider HEALTH MAINTENANCE Edited Result - Final from Last 3 Months or Most Recently Relevant to Health Maintenance Insurance [employer] ([employer] OOS Care Teams Solar Electric/Photovoltaic Installer Relationship Specialty Start Date End Date Kaur Earl NP PCP - General Internal Medicine 06/13/22
--- OUTSIDE RECORDS SUMMARY | 2024-10-02 11:25 | XMS_ITS | Encounter Summary ---
Author Organization [facility] Address [address] [place] [address] Care Team Providers Care Tower Dragline Operator Name Role Phone Ba Gustafson MD Primary Care Provider [phone] Leticia Tompkins MD Unavailable [phone] Non-Staff, Provider Primary Care Provider Vicki spann Encounter Details Date Type Department Care Team (Late st Contact Info) Description 08/08/2018 Abstract [facility] [address] [place] [address] Abstract, Doc [facility] Social History Tobacco Use Types Packs/Day Years Used Date Smoking Tobacco: Never Assessed Sex and Gender Information Value Date Recorded Sex Assigned at Not on file Legal Sex Male 1:57 PM CDT Gender Identity Not on file Sexual Orientation Not on file documented as of this encounter Plan of Treatment Not on file documented as of this encounter Procedures Procedure Name Priority Date/Time Associated Diagnosis Comments CMP (ABSTRACTED LAB) Routine 01/04/2018 HEMOGLOBIN, GLYCOSYLATED Routine 01/04/2018 CMP (ABSTRACTED LAB) Routine 09/22/2017 HEMOGLOBIN, GLYCOSYLATED Routine 09/22/2017 documented in this encounter Results * HEMOGLOBIN, GLYCOSYLATED (01/04/2018) HGB A1C 8.8 01/04/2018 us Doc [facility] Abstract LABORATORY Final Result * CMP (ABSTRACTED LAB) (01/04/2018) SODIUM S/P/B 139 POTASSIUM S/P/B 4.3 CHLORIDE S/P/B 101 CO2 27 BUN 10 CREATININE S/P/B 1.00 0.7 - 1.3 EGFR AFR. AMER. 98 EGFR NON-AFR. AMER. 84 <=90 CALCIUM S/P/B 9.8 GLUCOSE 114 mg/dL TOTAL PROTEIN S/P/B 7.4 ALBUMIN S/P/B 4.5 3.5 - 5.0 AST 22 ALT 21 ALKALINE PHOSPHATASE S/P/B 76 BILIRUBIN TOTAL S/P/B 1.3 01/04/2018 us Doc [facility] Abstract LAB-OUTSIDE/ABSTRACTED Final Result * HEMOGLOBIN, GLYCOSYLATED (09/22/2017) HGB A1C 9.4 09/22/2017 us Doc [facility] Abstract LABORATORY Final Result * CMP (ABSTRACTED LAB) (09/22/2017) SODIUM S/P/B 143 POTASSIUM S/P/B 4.2 CHLORIDE S/P/B 104 CO2 29 BUN 8 CREATININE S/P/B 1.07 0.7 - 1.3 EGFR AFR. AMER. 90 EGFR NON-AFR. AMER. 78 <=90 CALCIUM S/P/B 9.9 GLUCOSE 92 mg/dL TOTAL PROTEIN S/P/B 7.6 ALBUMIN S/P/B 4.6 3.5 - 5.0 AST 24 ALT 20 ALKALINE PHOSPHATASE S/P/B 74 BILIRUBIN TOTAL S/P/B 0.8 09/22/2017 us Doc [facility] Abstract LAB-OUTSIDE/ABSTRACTED Final Result documented in this encounter Visit Diagnoses Not on filedocumented in this encounter Additional Health Concerns Infection Onset Date Last Indicated Resolved Time COVID-19 Rule Out 03/29/2022 03/29/2022 03/30/2022 7:47 AM CDT documented as of this encounter Care Teams Tower Dragline Operator Relationship Specialty Start Date End Date Ba Gustafson MD [address] [place] [id number] PCP - General FAMILY PRACTICE 03/22/18 05/16/21 Non-Staff, Provider PCP - General 05/17/21 Leticia Tompkins MD [address] [place] [address] [place] [facility] Professor CARDIOVASCULAR DISEASE 03/22/18 documented as of this encounter
== END 2024-10-02 13:20 | disposition short-term general hospital (02) ==
PROVIDERS: Emergency Provider Emergency Medicine; PCP Nurse Practitioner Family
DX: I63.9 Cerebral infarction, unspecified (principal); R29.706 NIHSS score 6; E11.9 Type 2 diabetes mellitus without complications; I10 Essential (primary) hypertension; R94.31 Abnormal electrocardiogram [ECG] [EKG]
CPT/HCPCS: 36415; 70450; 70496; 70498; 71045; 80053; 80307; 82948; 84484; 85025; 85610; 85730; 93005; 96374; 99285; J3101; Q9967